=== PATIENT | male | born 1995 | race Caucasian/White ===

== ENCOUNTER 2017-06-01 22:28 | Emergency (ER) | payer BC ==
[~2017-06-01] VITALS: Ht 180.3 cm; Wt 94.2 kg
[~2017-06-01 22:28] MED LIST: ADVI200T PO; TYLE325T5 PO; [UNRECOGNIZED DRUG - OTHER] SL
[2017-06-02] MEDS ORDERED: ADACEL/BOOSTRIX VACCINE (DIPHTH/PERTUSS/ACELL/TETANUS)0.5ML SYR (90715) IM ONE (00:15)
[2017-06-02 00:42] VITALS: BP 154/81
--- NOTE | 2017-06-02 08:13 | REP ---
Clinical: Trauma. Technique: AP, lateral, bilateral oblique views of the right hand. Findings: There is a fracture involving the fifth metacarpal bone with volar angulation and overlying soft tissue swelling of indeterminate age. An acute fracture line is not identified and subtle callus formation cannot be excluded. Correlation with history and point of maximal tenderness recommended. The remainder of the examination appears normal. Impression: Boxer's fracture of the fifth metacarpal bone of indeterminate age. Signed by Paul Linton MD 06/02/2017 08:06 A
== END 2017-06-02 00:43 | disposition home or self-care (01) ==
LOC: M ED 22:28
DX: S62.306A Unspecified fracture of fifth metacarpal bone, right hand, initial encounter for closed fracture (principal); W22.8XXA Striking against or struck by other objects, initial encounter; Y92.9 Unspecified place or not applicable; Y99.9 Unspecified external cause status; Y93.9 Activity, unspecified; Z23 Encounter for immunization

== ENCOUNTER → 2018-08-09 | Outpatient (CLI) | payer OTHER | LOC: M OUTALCOH 09:33 | DX: F11.20 Opioid dependence, uncomplicated (principal) ==

== ENCOUNTER 2018-08-16 12:27 | Emergency (ER) | payer OTHER | END 2018-08-16 14:29 | disposition left against medical advice (07) | LOC: M ED 12:27 | DX: Z53.21 Procedure and treatment not carried out due to patient leaving prior to being seen by health care provider (principal) ==

== ENCOUNTER 2018-08-16 15:49 | Outpatient (RCR) | payer OTHER | END 2018-08-29 | LOC: M OUTALCOH 15:49 | DX: F11.20 Opioid dependence, uncomplicated (principal); F17.200 Nicotine dependence, unspecified, uncomplicated ==

== ENCOUNTER 2018-08-17 11:48 | Emergency (ER) | payer OTHER | END 2018-08-17 14:50 | disposition home or self-care (01) | LOC: M ED 11:48 | DX: L73.9 Follicular disorder, unspecified (principal) | CPT/HCPCS: 99283 ==

== ENCOUNTER 2018-08-31 09:00 | Outpatient (RCR) | payer OTHER | END 2018-09-29 | LOC: M OUTALCOH 09-02 14:00 | DX: F11.20 Opioid dependence, uncomplicated (principal); F17.200 Nicotine dependence, unspecified, uncomplicated ==

== ENCOUNTER 2018-09-07 18:17 | Emergency (ER) | payer OTHER | END 2018-09-07 18:22 | disposition home or self-care (01) | LOC: M ED 18:17 | DX: A63.0 Anogenital (venereal) warts (principal) | CPT/HCPCS: 99282 ==

== ENCOUNTER 2018-09-30 16:31 | Outpatient (RCR) | payer OTHER | END 2018-10-29 | LOC: M OUTALCOH 10-04 08:45 | DX: F11.20 Opioid dependence, uncomplicated (principal); F17.200 Nicotine dependence, unspecified, uncomplicated ==

== ENCOUNTER → 2018-12-08 | Outpatient (REF) | payer OTHER ==
[~2018-12-08] MED LIST changes: +DOXY100C37 PO; +IMIQ5CRE TOP; +MUPI2OI TOP
[2018-12-08 19:47] LABS: CHLAMYDIA DNA AMPLIFICATION NEGATIVE (NEGATIVE); GC DNA AMPLIFICATION NEGATIVE (NEGATIVE)
[2018-12-10 11:10] LABS: HEPATITIS B SURFACE ANTIBODY POSITIVE (POSITIVE); HEPATITIS B SURFACE ANTIGEN NEGATIVE (NEGATIVE); HEPATITIS C VIRUS ABY INDEX 0.2 INDEX (<0.8); HIV 1&2 SCREEN CENTAUR NEGATIVE (NEGATIVE)
== END ==
LOC: M LAB REF 17:01
PROVIDERS: ATTEND Family Medicine Addiction Medicine
DX: A63.0 Anogenital (venereal) warts (principal)

== ENCOUNTER → 2020-10-02 | Outpatient (REF) ==
[2020-10-03 20:11] LABS: INFLUENZA A AMPLIFICATION NEGATIVE (NEGATIVE); INFLUENZA B AMPLIFICATION NEGATIVE (NEGATIVE)
== END ==
LOC: M LAB 09:49
DX: Z02.89 Encounter for other administrative examinations (principal)